=== PATIENT | female | born 1970 | race Hispanic/Latino ===

== ENCOUNTER 2020-01-01 21:13 | Emergency (ER) | payer MEDICARE ==
[2020-01-01 21:40] LABS: Bilirubin,Urine NEG (Negative); Blood,Urine NEG (Negative); Color,Urine Yellow (Yellow); Mucus,Urine FEW /HPF; Protein,Urine <15 mg/dL mg/dL (Negative)
--- NOTE | 2020-01-01 21:40 | Emergency Department Report ---
ED Psych HPI - General Chief Complaint: Psych Stated Complaint: MH/SUICIDAL Time Seen by Provider: 01/01/20 21:36 Source: patient, EMS Mode of arrival: Ambulatory Limitations: No Limitations - History of Present Illness Initial Comments: Patient is a 49-year-old female that presents emergency room with complaints of suicidal ideation, hallucinations,, depression. Patient states that her symptoms started 3 days ago and are worsening. Patient states that she has a plan. Patient states she is going to cut her throat or run into traffic and when a car run her over. Patient states that she is having audio and visual hallucinations. Patient states she is compliant with her medications. Patient that she has a past medical history hypertension and schizophrenia. Patient states she is staying at a halfway and needs to be admitted into the [facility] to get stabilized. MD Complaint: suicidal ideation, feels depressed -: Sudden Associated Psychiatric Symptoms: depression, suicidal ideation, racing thoughts, auditory hallucinations, visual hallucinations History of same: Yes Quality: constant Improves With: other (Life stressors) Worsens With: therapy Context: significant life stressor Associated Symptoms: denies: confusion, headache, shortness of breath, nausea, vomiting Treatments Prior to Arrival: none If Self Harm: admits thoughts of, has plan - Related Data Previous Rx's Medication Instructions Recorded Last Taken Type QUEtiapine [SEROquel] 50 mg PO BID #60 tablet 01/04/20 Unknown Rx Sertraline [Zoloft] 25 mg PO QDAY #30 tablet 01/04/20 Unknown Rx hydrOXYzine PAMOATE [Vistaril] 25 mg PO BID PRN #60 capsule 01/04/20 Unknown Rx traZODone [Desyrel] 50 mg PO QHS #30 tablet 01/04/20 Unknown Rx Allergies Allergy/AdvReac Type Severity Reaction Status Date / Time No Known Allergies Allergy Unverified 01/01/20 21:22 ED Review of Systems ROS: Stated complaint: MH/SUICIDAL Other details as noted in HPI Constitutional: denies: chills, fever Eyes: denies: eye pain, eye discharge, vision change ENT: denies: ear pain, throat pain Respiratory: denies: cough, shortness of breath, wheezing Cardiovascular: denies: chest pain, palpitations Endocrine: no symptoms reported Gastrointestinal: denies: abdominal pain, nausea, diarrhea Genitourinary: denies: urgency, dysuria, discharge Musculoskeletal: denies: back pain, joint swelling, arthralgia Skin: denies: rash, lesions Neurological: denies: headache, weakness, paresthesias Psychiatric: anxiety, depression, auditory hallucinations, visual hallucinations, suicidal thoughts Hematological/Lymphatic: denies: easy bleeding, easy bruising ED Past Medical Hx - Past Medical History Previous Medical History?: Yes Hx Hypertension: Yes Hx Psychiatric Treatment: Yes - Surgical History Past Surgical History?: No - Family History Family history: no significant - Social History Smoking Status: Never Smoker Substance Use Type: Alcohol - Medications Home Medications: Home Medications Medication Instructions Recorded Confirmed Last Taken Type QUEtiapine [SEROquel] 50 mg PO BID #60 tablet 01/04/20 Unknown Rx Sertraline [Zoloft] 25 mg PO QDAY #30 tablet 01/04/20 Unknown Rx hydrOXYzine PAMOATE [Vistaril] 25 mg PO BID PRN #60 capsule 01/04/20 Unknown Rx traZODone [Desyrel] 50 mg PO QHS #30 tablet 01/04/20 Unknown Rx ED Physical Exam - General Limitations: No Limitations General appearance: alert, in no apparent distress - Head Head exam: Present: atraumatic, normocephalic - Eye Eye exam: Present: normal appearance - ENT ENT exam: Present: mucous membranes moist - Neck Neck exam: Present: normal inspection - Respiratory Respiratory exam: Present: normal lung sounds bilaterally. Absent: respiratory distress - Cardiovascular Cardiovascular Exam: Present: regular rate, normal rhythm. Absent: systolic murmur, diastolic murmur, rubs, gallop - GI/Abdominal GI/Abdominal exam: Present: soft, normal bowel sounds - Extremities Exam Extremities exam: Present: normal inspection - Back Exam Back exam: Present: normal inspection - Neurological Exam Neurological exam: Present: alert, oriented X3 - Psychiatric Psychiatric exam: Present: depressed, flat affect, suicidal ideation - Skin Skin exam: Present: warm, dry, intact, normal color. Absent: rash ED Course Vital Signs 01/01/20 01/02/20 01/02/20 21:49 07:25 07:54 Temperature 98.0 F Pulse Rate 78 Respiratory 18 18 20 Rate Blood Pressure 126/78 [Left] O2 Sat by Pulse 98 96 96 Oximetry 01/02/20 11:26 Temperature Pulse Rate 88 Respiratory 18 Rate Blood Pressure 134/72 [Left] O2 Sat by Pulse 97 Oximetry - Reevaluation(s) Reevaluation #1: I discussed all results and clinical findings with patient. I discussed plan of care with patient. Patient agrees with plan of care. Patient is medically cleared. Patient will remain in the ER as an ER hold. Patient final disposition will come from our mental health and psychiatry team. 01/02/20 01:46 ED Medical Decision Making - Lab Data Result diagrams: 01/01/20 21:44 01/01/20 21:44 - Medical Decision Making Patient is a 49-year-old female that presents emergency room with complaints of suicidal ideation, depression and hallucinations. Patient placed on a ER hold after initial evaluation. Patient had labs done which were essentially unremarkable except for anemia. Patient is medically cleared. Patient's final disposition will come from our psychiatric and mental health team. - Differential Diagnosis Suicidal ideation, hallucination, mental health clearance Critical care attestation.: If time is entered above; I have spent that time in minutes in the direct care of this critically ill patient, excluding procedure time. ED Disposition Clinical Impression: Suicidal ideations, Hallucinations Anemia Qualifiers: Anemia type: unspecified type Qualified Code(s): D64.9 - Anemia, unspecified Disposition: DC-09 OP ADMIT IP TO THIS HOSP Is pt being admited?: No Does the pt Need Aspirin: No Condition: Stable Referrals: KATHY FRANCO MD [Primary Care Provider] - 3-5 Days Time of Disposition: 01:46
[2020-01-01 21:48] LABS: Amphetamine Screen,Urine PRESUMPTIVE NEGATIVE; Benzodiazepines Screen,Urine PRESUMPTIVE NEGATIVE; Cannabinoid Screen,Urine PRESUMPTIVE NEGATIVE; Cocaine Screen,Urine PRESUMPTIVE NEGATIVE; Methadone Screen,Urine PRESUMPTIVE NEGATIVE; Opiate Screen,Urine PRESUMPTIVE NEGATIVE
[2020-01-01 22:52] LABS: Basophils % (Auto) 0.3 % (0.0-1.8); Eosinophils % (Auto) 0.2 % (0.0-4.3); Hematocrit 27.4 % (30.3-42.9); Hemoglobin 9.3 gm/dl (10.1-14.3); Lymphocytes # (Auto) 1.3 K/mm3 (1.2-5.4); Lymphocytes % (Auto) 13.4 % (13.4-35.0); Mean Corpuscular HGB Conc 34 % (30-34); Mean Corpuscular Volume 86 fl (79-97); Monocytes # (Auto) 1.4 K/mm3 (0.0-0.8); Platelet Count 239 K/mm3 (140-440); Red Blood Count 3.19 M/mm3 (3.65-5.03)
[2020-01-01 22:53] LABS: BUN/Creatinine Ratio 20; Blood Urea Nitrogen 18 mg/dL (7-17); Calcium 8.7 mg/dL (8.4-10.2); Hemolysis Index 7
[2020-01-02 11:29] VITALS: BP 134/72
== END 2020-01-02 11:26 | disposition admitted as inpatient to this hospital (09) ==
LOC: ED 21:13 → EEVIPCON 21:13 → ED 01-02 11:26
DX: R45.851 Suicidal ideations (principal); R44.0 Auditory hallucinations; R44.1 Visual hallucinations; D64.9 Anemia, unspecified; I10 Essential (primary) hypertension
CPT/HCPCS: 36415; 80048; 80307; 80320; 81001; 85025; G0480